=== PATIENT | female | born 1975 | race African-American/Black ===

== ENCOUNTER → 2023-03-14 | Outpatient (CLI) | payer OTHER | LOC: CANSCHCLI → MC.RAD 10:12 → COL.RAD 10:12 → MC.RAD 11:15 → COL.RAD 11:15 | DX: Z12.31 Encounter for screening mammogram for malignant neoplasm of breast (principal); N63.20 Unspecified lump in the left breast, unspecified quadrant ==

== ENCOUNTER → 2023-07-11 | Outpatient (CLI) | payer SELFPAY ==
[~2023-07-11] MED LIST: NORCO 325 MG-51 TAB PO
== END ==
LOC: MC.RAD 10:44
DX: N63.21 Unspecified lump in the left breast, upper outer quadrant (principal)
CPT/HCPCS: A4648